=== PATIENT | female | born 1995 | race African-American/Black ===

== ENCOUNTER 2022-11-02 13:11 | Emergency (ER) | payer MEDICAID, OTHER ==
[~2022-11-02] VITALS: Ht 180.3 cm; Wt 146.0 kg
[2022-11-02 13:54] LABS: BASOPHILS % 0.5 % (0.0-2.0); EOSINOPHILS % 1.4 % (0.0-5.0); HEMATOCRIT. 32.6 % (36.0-48.0); HEMOGLOBIN. 10.9 g/dL (12.0-16.0); LYMPHOCYTES % 21.1 % (20.0-50.0); MEAN CORPUSCULAR HEMOGLOBIN 26.8 pg (28.0-32.0); MEAN CORPUSCULAR VOLUME 80.5 fL (81.0-99.0); MEAN PLATELET VOLUME 6.4 fl (7.4-10.4); MONOCYTES % 3.8 % (2.0-8.0); NEUTROPHILS % 73.2 % (40.0-76.0); PLATELET 347 x1000/uL (130-400); RED BLOOD CELL COUNT 4.05 mill/uL (4.2-5.4); RED CELL DISTRIBUTION WIDTH 14.2 % (11.6-14.6)
[2022-11-02 14:01] LABS: CHLORIDE 108 mEq/L (98-107)
[2022-11-02 14:35] LABS: B-HCG QUANTITATIVE 7468 mIU/mL (<3)
[2022-11-02] MEDS ORDERED: MORPHINE SULFATE 4 MG/ML CPJ (NOT FOR IM USE) IV ONE (16:30)
[2022-11-02 18:06] VITALS: BP 159/88
[2022-11-02] MEDS ORDERED: OXYTOCIN 30 UNITS/500ML NS PMX 500 ML IV ONE (18:15)
[2022-11-02] MEDS ORDERED: SODIUM CHLORIDE 0.9% IV ONE (18:30)
[2022-11-02] MEDS ORDERED: OXYTOCIN IV ONE (18:30)
== END 2022-11-03 00:34 | disposition home or self-care (01) ==
LOC: ER 13:11
DX: O26.891 Other specified pregnancy related conditions, first trimester (principal); R10.9 Unspecified abdominal pain; Z3A.01 Less than 8 weeks gestation of pregnancy
CPT/HCPCS: 36415; 76830; 76856; 80053; 84702; 85025; 86850; 86900; 86901; 88305; 88309; 96374; 99285; J2270; J7040; J2590

== ENCOUNTER 2023-07-24 23:26 | Emergency (ER) | payer MEDICAID ==
[~2023-07-24] VITALS: Ht 180.3 cm; Wt 195.0 kg
[2023-07-24 23:45] VITALS: BP 156/90; RESP 18; TEMP 98; O2SAT 100
[2023-07-24 23:54] VITALS: PULSE 111
[2023-07-25 00:59] LABS: BASOPHILS % 0.5 % (0.0-2.0); EOSINOPHILS % 2.1 % (0.0-5.0); HEMATOCRIT. 35.4 % (36.0-48.0); LYMPHOCYTES % 33.7 % (20.0-50.0); MEAN CORPUSCULAR HEMOGLOBIN 25.6 pg (28.0-32.0); MEAN CORPUSCULAR HGB CONC 31.1 g/dL (31.0-37.0); MEAN CORPUSCULAR VOLUME 82.4 fL (81.0-99.0); MEAN PLATELET VOLUME 6.3 fl (7.4-10.4); MONOCYTES % 4.2 % (2.0-8.0); NEUTROPHILS % 59.5 % (40.0-76.0); PLATELET 433 x1000/uL (130-400); RED CELL DISTRIBUTION WIDTH 16.1 % (11.6-14.6); WHITE BLOOD COUNT 15.3 x1000/uL (4.5-11.0)
[2023-07-25 01:16] LABS: ALANINE AMINOTRANSFERASE 8 IU/L (10-49); ASPARTATE AMINOTRANSFERASE 10 IU/L (<34); B-HCG QUANTITATIVE 5711 mIU/mL (<3); BILIRUBIN TOTAL 0.3 mg/dL (0.1-1.0); CARBON DIOXIDE 24 mEq/L (21-32); CHLORIDE 107 mEq/L (98-107); CREATININE 0.6 mg/dL (0.6-1.0); GLUCOSE 97 mg/dL (70-105); POTASSIUM 3.8 mEq/L (3.5-5.1); PROTEIN TOTAL 7.6 g/dL (6.0-8.3); SODIUM 139 mEq/L (136-145); UREA NITROGEN BLOOD 6 mg/dL (9-23)
[2023-07-25 02:56] LABS: CLARITY URINE TURBID (CLEAR); COLOR URINE YELLOW (YELLOW); GLUCOSE URINE NEGATIVE (NEGATIVE); KETONES URINE TRACE (NEGATIVE); LEUKOCYTE ESTERASE URINE 1+ (NEGATIVE); NITRITE URINE NEGATIVE (NEGATIVE); OCCULT BLOOD URINE 2+ (NEGATIVE); PH URINE 5.5 (4.5-8.0); PROTEIN URINE NEGATIVE (NEGATIVE)
[2023-07-25 03:27] LABS: AMORPHOUS SEDIMENT URINE 1+ /lpf; BACTERIA URINE 1+; RBC URINE 0-2 /hpf (0-2); SQUAMOUS EPITHELIAL CELL URINE 1+ /lpf (RARE/1+)
== END 2023-07-25 05:10 | disposition left against medical advice (07) ==
LOC: ER 23:26
DX: N93.9 Abnormal uterine and vaginal bleeding, unspecified (principal); Z53.21 Procedure and treatment not carried out due to patient leaving prior to being seen by health care provider
CPT/HCPCS: 36415; 76801; 80053; 81003; 84702; 85025; 86850; 86900; 99281

== ENCOUNTER 2023-09-21 09:09 | Emergency (ER) | payer BC, MEDICAID ==
[~2023-09-21] VITALS: Ht 180.3 cm; Wt 195.0 kg
[2023-09-21 09:10] VITALS: O2SAT 96
[2023-09-21 09:42] LABS: BASOPHILS % 0.4 % (0.0-2.0); EOSINOPHILS % 1.9 % (0.0-5.0); HEMATOCRIT. 33.9 % (36.0-48.0); MEAN CORPUSCULAR HEMOGLOBIN 26.1 pg (28.0-32.0); MEAN CORPUSCULAR HGB CONC 32.4 g/dL (31.0-37.0); MEAN CORPUSCULAR VOLUME 80.5 fL (81.0-99.0); MEAN PLATELET VOLUME 6.7 fl (7.4-10.4); MONOCYTES % 6.2 % (2.0-8.0); NEUTROPHILS % 64.5 % (40.0-76.0); PLATELET 352 x1000/uL (130-400); RED BLOOD CELL COUNT 4.21 mill/uL (4.2-5.4); RED CELL DISTRIBUTION WIDTH 14.8 % (11.6-14.6); WHITE BLOOD COUNT 13.6 x1000/uL (4.5-11.0)
[2023-09-21 10:48] LABS: CARBON DIOXIDE 23 mEq/L (21-32); CHLORIDE 107 mEq/L (98-107); GLUCOSE 111 mg/dL (70-105); POTASSIUM 3.8 mEq/L (3.5-5.1); SODIUM 137 mEq/L (136-145); UREA NITROGEN BLOOD < 5 mg/dL (9-23)
[2023-09-21 10:49] LABS: ALANINE AMINOTRANSFERASE 7 IU/L (10-49); ALBUMIN 4.2 g/dL (3.2-4.8); ASPARTATE AMINOTRANSFERASE < 8 IU/L (<34); B-HCG QUANTITATIVE 25244 mIU/mL (<3); BILIRUBIN TOTAL 0.3 mg/dL (0.1-1.0); CALCIUM 9.1 mg/dL (8.7-10.4); CREATININE 0.5 mg/dL (0.6-1.0); PROTEIN TOTAL 7.6 g/dL (6.0-8.3)
[2023-09-21 11:59] VITALS: BP 147/90; PULSE 105; RESP 15; TEMP 98.3
== END 2023-09-21 11:55 | disposition home or self-care (01) ==
LOC: ER 10:34
DX: O03.9 Complete or unspecified spontaneous abortion without complication (principal); Z98.890 Other specified postprocedural states
CPT/HCPCS: 36415; 76801; 80053; 84702; 85025; 86850; 86900; 99284

== ENCOUNTER 2023-09-24 15:33 | Emergency (ER) | payer MEDICAID ==
[~2023-09-24] VITALS: Ht 180.3 cm; Wt 195.0 kg
[2023-09-24 15:35] VITALS: RESP 20
[2023-09-24 15:36] VITALS: BP 158/89; PULSE 125; TEMP 98.9; O2SAT 99
[2023-09-24 16:07] LABS: BASOPHILS % 0.7 % (0.0-2.0); EOSINOPHILS % 1.8 % (0.0-5.0); HEMATOCRIT. 32.2 % (36.0-48.0); HEMOGLOBIN. 10.5 g/dL (12.0-16.0); LYMPHOCYTES % 22.1 % (20.0-50.0); MEAN CORPUSCULAR HGB CONC 32.6 g/dL (31.0-37.0); MEAN PLATELET VOLUME 6.6 fl (7.4-10.4); MONOCYTES % 6.2 % (2.0-8.0); NEUTROPHILS % 69.2 % (40.0-76.0); PLATELET 342 x1000/uL (130-400); RED BLOOD CELL COUNT 4.03 mill/uL (4.2-5.4)
[2023-09-24 16:22] LABS: ALANINE AMINOTRANSFERASE < 7 IU/L (10-49); ALBUMIN 4.2 g/dL (3.2-4.8); ASPARTATE AMINOTRANSFERASE 9 IU/L (<34); BILIRUBIN TOTAL 0.2 mg/dL (0.1-1.0); CALCIUM 8.9 mg/dL (8.7-10.4); CARBON DIOXIDE 22 mEq/L (21-32); CHLORIDE 105 mEq/L (98-107); CREATININE 0.5 mg/dL (0.6-1.0); GLUCOSE 103 mg/dL (70-105); HCG SCREEN POSITIVE; POTASSIUM 3.8 mEq/L (3.5-5.1); PROTEIN TOTAL 7.4 g/dL (6.0-8.3); SODIUM 137 mEq/L (136-145); UREA NITROGEN BLOOD 5 mg/dL (9-23)
== END 2023-09-25 04:42 | disposition left against medical advice (07) ==
LOC: ER 15:33
DX: N93.9 Abnormal uterine and vaginal bleeding, unspecified (principal); Z53.21 Procedure and treatment not carried out due to patient leaving prior to being seen by health care provider
CPT/HCPCS: 36415; 80053; 84703; 85025; 86850; 86900; 99283

== ENCOUNTER 2024-02-25 11:55 | Emergency (ER) | payer MEDICAID ==
[~2024-02-25] VITALS: Ht 177.8 cm; Wt 138.0 kg
[2024-02-25 11:57] VITALS: TEMP 98.7; O2SAT 100
[2024-02-25] MEDS: DIPHENHYDRAMINE 50MG/ML VIAL IM ONE (13:03)
[2024-02-25] MEDS: DEXAMETHASONE 10 MG/ML VIAL IM ONE (13:04)
[2024-02-25 13:45] VITALS: BP 135/73; PULSE 86; RESP 19
== END 2024-02-25 13:46 | disposition home or self-care (01) ==
LOC: ER 11:55
DX: T78.49XA Other allergy, initial encounter (principal); D64.9 Anemia, unspecified; Z98.890 Other specified postprocedural states; Z91.018 Allergy to other foods
CPT/HCPCS: 99284; 96372; J1100; J1200

== ENCOUNTER 2024-03-04 19:15 | Emergency (ER) | payer MEDICAID ==
[~2024-03-04] VITALS: Ht 180.3 cm; Wt 170.0 kg
[2024-03-04 19:34] VITALS: BP 130/89; PULSE 112; RESP 16; TEMP 98.1; O2SAT 98
== END 2024-03-04 22:54 | disposition left against medical advice (07) ==
LOC: ER 19:15
DX: M79.604 Pain in right leg (principal); Z53.21 Procedure and treatment not carried out due to patient leaving prior to being seen by health care provider

== ENCOUNTER 2024-03-15 19:52 | Emergency (ER) | payer MEDICAID ==
[~2024-03-15] VITALS: Ht 154.9 cm; Wt 193.0 kg
[2024-03-15 19:55] VITALS: BP 134/86; TEMP 98.7; O2SAT 99
[2024-03-15 19:57] VITALS: PULSE 108; RESP 16; O2SAT 100
[2024-03-15] MEDS: DEXAMETHASONE 10 MG/ML VIAL IM ONE (20:46)
[2024-03-15] MEDS: DIPHENHYDRAMINE 50MG/ML VIAL IM ONE (21:24)
[2024-03-15] MEDS: FAMOTIDINE 20MG TABLET PO ONE (21:30)
[2024-03-15] MEDS: DIPHENHYDRAMINE 25MG CAPSULE PO NR (21:31)
[2024-03-15] MEDS ORDERED: PRED10TA23 MT (22:02)
== END 2024-03-15 22:13 | disposition left against medical advice (07) ==
LOC: ER 19:52
DX: R51.9 Headache, unspecified (principal); R22.0 Localized swelling, mass and lump, head; D64.9 Anemia, unspecified; Z87.440 Personal history of urinary (tract) infections
CPT/HCPCS: 96372; 99283; Q0163; J1100; Z7610

== ENCOUNTER 2024-03-30 23:42 | Emergency (ER) | payer MEDICAID ==
[~2024-03-30] VITALS: Ht 180.3 cm; Wt 198.4 kg
[~2024-03-30 23:42] MED LIST: PRED10TA23 MT
[2024-03-30 23:46] VITALS: TEMP 98.3; O2SAT 99
[2024-03-30 23:47] VITALS: O2SAT 100
[2024-03-31] MEDS ORDERED: KETOROLAC 30MG/ML VIAL IM STA (00:20)
[2024-03-31 01:17] VITALS: BP 113/74; PULSE 124; RESP 18
[2024-03-31] MEDS: IBUPROFEN 800MG TABLET PO ONE (01:17)
== END 2024-03-31 04:05 | disposition left against medical advice (07) ==
LOC: ER 23:42
DX: R10.813 Right lower quadrant abdominal tenderness (principal); D64.9 Anemia, unspecified; Z98.890 Other specified postprocedural states; Z91.018 Allergy to other foods
CPT/HCPCS: 99282

== ENCOUNTER 2024-04-19 04:43 | Inpatient (IN) | payer MEDICAID ==
[~2024-04-19] VITALS: Ht 180.3 cm; Wt 192.8 kg
[2024-04-19 04:49] VITALS: O2SAT 97
[2024-04-19] MEDS ORDERED: DICYCLOMINE 10 MG/5 ML ORAL SYR PO STA (05:53)
[2024-04-19] MEDS ORDERED: ONDANSETRON 4MG ODT PO STA (05:53)
[2024-04-19] MEDS ORDERED: MAGNESIUM/ALUMINUM HYDROXIDE/SIMETHICONE 30ML UDC PO STA (05:53)
[2024-04-19 06:32] LABS: BASOPHILS % 0.2 % (0.0-2.0); DIFFERENTIAL COMMENT 0; EOSINOPHILS % 1.2 % (0.0-5.0); HEMATOCRIT. 35.2 % (36.0-48.0); HEMOGLOBIN. 11.2 g/dL (12.0-16.0); LYMPHOCYTES % 27.4 % (20.0-50.0); MEAN CORPUSCULAR HEMOGLOBIN 24.4 pg (28.0-32.0); MEAN CORPUSCULAR HGB CONC 31.9 g/dL (31.0-37.0); MEAN CORPUSCULAR VOLUME 76.6 fL (81.0-99.0); MEAN PLATELET VOLUME 6.5 fl (7.4-10.4); NEUTROPHILS % 67.2 % (40.0-76.0); PLATELET 479 x1000/uL (130-400); RED CELL DISTRIBUTION WIDTH 17.1 % (11.6-14.6); WHITE BLOOD COUNT 11.4 x1000/uL (4.5-11.0)
[2024-04-19 06:33] LABS: CHLORIDE 108 mEq/L (98-107); POTASSIUM 4.1 mEq/L (3.5-5.1); SODIUM 140 mEq/L (136-145)
[2024-04-19 06:34] LABS: CALCIUM 9.1 mg/dL (8.7-10.4); CARBON DIOXIDE 27 mEq/L (21-32)
[2024-04-19] MEDS: ONDANSETRON 4MG ODT PO NR (06:35)
[2024-04-19] MEDS: MAGNESIUM/ALUMINUM HYDROXIDE/SIMETHICONE 30ML UDC PO NR (06:35)
[2024-04-19] MEDS: DICYCLOMINE HCL 10MG CAPSULE PO NR (06:35)
[2024-04-19 06:37] LABS: CLARITY URINE TURBID (CLEAR); COLOR URINE YELLOW (YELLOW); GLUCOSE URINE NEGATIVE (NEGATIVE); KETONES URINE NEGATIVE (NEGATIVE); LEUKOCYTE ESTERASE URINE TRACE (NEGATIVE); NITRITE URINE NEGATIVE (NEGATIVE); OCCULT BLOOD URINE NEGATIVE (NEGATIVE); PROTEIN URINE NEGATIVE (NEGATIVE); SPECIFIC GRAVITY URINE 1.019 (1.005-1.030)
[2024-04-19 06:38] LABS: HCG SCREEN NEGATIVE; INR 0.9; PROTHROMBIN TIME 10.6 sec (9.6-11.0)
[2024-04-19 06:39] LABS: CREATININE 0.7 mg/dL (0.6-1.0); GLUCOSE 133 mg/dL (70-105); UREA NITROGEN BLOOD 7 mg/dL (9-23)
[2024-04-19 06:41] LABS: ALANINE AMINOTRANSFERASE 12 IU/L (10-49); ALBUMIN 4.2 g/dL (3.2-4.8); ASPARTATE AMINOTRANSFERASE 12 IU/L (<34); BILIRUBIN DIRECT 0.1 mg/dL (<=3.0); BILIRUBIN TOTAL 0.5 mg/dL (0.1-1.0); PROTEIN TOTAL 7.2 g/dL (6.0-8.3)
[2024-04-19 07:11] LABS: AMORPHOUS SEDIMENT URINE 2+ /lpf; BACTERIA URINE 1+; RBC URINE 0-2 /hpf (0-2); SQUAMOUS EPITHELIAL CELL URINE 1+ /lpf (RARE/1+); YEAST URINE NONE SEEN
[2024-04-19] MEDS: ACETAMINOPHEN 325MG TABLET PO ONE (08:30)
[2024-04-19] MEDS: IBUPROFEN 400MG TABLET PO ONE (08:30)
[2024-04-19] MEDS ORDERED: MORPHINE SULFATE 4 MG/ML INJ (FOR IV/IM USE) IV ONE (09:30)
[2024-04-19] MEDS: MORPHINE SULFATE 4 MG/ML INJ (FOR IV/IM USE) IV NR (09:48)
[2024-04-19 10:05] LABS: PHOSPHORUS 3.4 mg/dL (2.5-4.9)
[2024-04-19] MEDS ORDERED: DOCUSATE SODIUM 100MG CAPSULE PO PRN (10:15)
[2024-04-19] MEDS ORDERED: ACETAMINOPHEN 325MG TABLET PO PRN ×2 (10:15)
[2024-04-19] MEDS ORDERED: GUAIFENESIN 200MG/10ML SUGAR FREE UDC PO PRN (10:15)
[2024-04-19] MEDS ORDERED: ONDANSETRON HCL 4MG/2ML INJ IV PRN (10:15)
[2024-04-19] MEDS ORDERED: MAGNESIUM/ALUMINUM HYDROXIDE/SIMETHICONE 30ML UDC PO PRN (10:15)
[2024-04-19] MEDS ORDERED: CLONIDINE 0.1MG TABLET PO PRN (10:15)
[2024-04-19] MEDS ORDERED: IPRATROPIUM/ALBUTEROL 0.5-3(2.5)MG/3ML NEB HHN PRN (10:15)
[2024-04-19 10:41] LABS: IRON 29 ug/dL (50-170)
[2024-04-19 10:44] LABS: TOTAL IRON BINDING CAPACITY 476 ug/dl (250-425)
[2024-04-19 11:00] VITALS: BP 124/71; PULSE 72; RESP 20; TEMP 36.3068
[2024-04-19 12:34] LABS: VITAMIN B12 SERUM 413 pg/mL (211-911)
[2024-04-19 12:36] LABS: FERRITIN 35 ng/mL (10-291); FOLIC ACID (FOLATE) SERUM 9.52 ng/mL (>5.38)
[2024-04-19] MEDS: PANTOPRAZOLE SODIUM 40 MG/VIAL IV SCH (12:42)
[2024-04-19] MEDS: SUCRALFATE 1G TABLET PO SCH (13:46)
[2024-04-19 16:00] VITALS: BP 124/71; PULSE 72; RESP 20; TEMP 36.28068; O2SAT 97
[2024-04-19] MEDS ORDERED: SODIUM CHLORIDE 0.9% 500 ML IV ONE (17:45)
[2024-04-19] MEDS ORDERED: SODIUM CHLORIDE 0.9% 1,000 ML IV SCH (18:00)
[2024-04-19 20:00] VITALS: BP 127/77; PULSE 85; RESP 19; TEMP 36.114; O2SAT 98
[2024-04-19] MEDS: MORPHINE SULFATE 2 MG/ML INJ (NOT FOR IM USE) IV PRN (21:11)
[2024-04-20] VITALS: BP 115/46; PULSE 89; RESP 18; TEMP 36.3918; O2SAT 98
[2024-04-20 02:51] LABS: CREATINE KINASE 87 IU/L (34-145)
[2024-04-20 03:13] LABS: TROPONIN I HIGH SENSITIVITY < 4 ng/L (3.0-34)
[2024-04-20 04:00] VITALS: BP 113/48; PULSE 88; RESP 19; TEMP 36.16956; O2SAT 98
[2024-04-20 08:00] VITALS: BP 137/71; PULSE 94; RESP 18; TEMP 36.44736
[2024-04-20 08:00] LABS: ALANINE AMINOTRANSFERASE 10 IU/L (10-49); ALBUMIN 3.8 g/dL (3.2-4.8); ASPARTATE AMINOTRANSFERASE 11 IU/L (<34); BILIRUBIN DIRECT 0.2 mg/dL (<=3.0); BILIRUBIN TOTAL 0.6 mg/dL (0.1-1.0); PROTEIN TOTAL 6.6 g/dL (6.0-8.3)
[2024-04-20 08:02] LABS: CALCIUM 8.6 mg/dL (8.7-10.4); CARBON DIOXIDE 26 mEq/L (21-32); CHLORIDE 107 mEq/L (98-107); POTASSIUM 3.9 mEq/L (3.5-5.1); SODIUM 139 mEq/L (136-145)
[2024-04-20 08:08] LABS: CREATININE 0.7 mg/dL (0.6-1.0); GLUCOSE 103 mg/dL (70-105); TRIGLYCERIDE 88 mg/dL (0-150); UREA NITROGEN BLOOD 7 mg/dL (9-23)
[2024-04-20 08:09] LABS: LDL CHOLESTEROL 181 mg/dL (5-100)
[2024-04-20 08:10] LABS: CHOLESTEROL 201 mg/dL (<200); HDL CHOLESTEROL 28 mg/dL (>65); T4 FREE 1.25 ng/dL (0.89-1.76); THYROID STIMULATING HORMONE 1.79 uIU/mL (0.55-4.78)
[2024-04-20 08:35] LABS: BASOPHILS % 0.2 % (0.0-2.0); DIFFERENTIAL COMMENT 0; EOSINOPHILS % 2.6 % (0.0-5.0); HEMATOCRIT. 33.7 % (36.0-48.0); HEMOGLOBIN. 10.7 g/dL (12.0-16.0); LYMPHOCYTES % 40.4 % (20.0-50.0); MEAN CORPUSCULAR HEMOGLOBIN 24.7 pg (28.0-32.0); MEAN CORPUSCULAR HGB CONC 31.8 g/dL (31.0-37.0); MEAN CORPUSCULAR VOLUME 77.5 fL (81.0-99.0); MEAN PLATELET VOLUME 6.8 fl (7.4-10.4); MONOCYTES % 4.5 % (2.0-8.0); NEUTROPHILS % 52.3 % (40.0-76.0); PLATELET 438 x1000/uL (130-400); RED BLOOD CELL COUNT 4.35 mill/uL (4.2-5.4); RED CELL DISTRIBUTION WIDTH 16.9 % (11.6-14.6); WHITE BLOOD COUNT 9.1 x1000/uL (4.5-11.0)
[2024-04-20] MEDS: MULTIVITAMINS,THER W-MINERALS TABLET PO SCH (09:20)
[2024-04-20] MEDS: TAMSULOSIN HCL 0.4MG SR CAPSULE PO SCH (09:20)
[2024-04-20 12:00] VITALS: BP 126/71; PULSE 87; RESP 18; TEMP 36.83628; O2SAT 98
[2024-04-20] MEDS ORDERED: ATORVASTATIN CALCIUM 40MG TABLET PO SCH (21:00)
== END 2024-04-20 15:30 | disposition left against medical advice (07) | DRG 241 ==
LOC: ER 04:43 → 6WST 09:57
PROVIDERS: ADMIT Preventive Medicine Clinical Informatics; ATTEND Preventive Medicine Clinical Informatics
DX: K29.70 Gastritis, unspecified, without bleeding (principal); K76.0 Fatty (change of) liver, not elsewhere classified; R16.2 Hepatomegaly with splenomegaly, not elsewhere classified; K22.4 Dyskinesia of esophagus; K21.9 Gastro-esophageal reflux disease without esophagitis; D50.9 Iron deficiency anemia, unspecified; D72.829 Elevated white blood cell count, unspecified; N20.0 Calculus of kidney; E66.01 Morbid (severe) obesity due to excess calories; E78.5 Hyperlipidemia, unspecified; Z53.29 Procedure and treatment not carried out because of patient's decision for other reasons; M13.88 Other specified arthritis, other site; R73.9 Hyperglycemia, unspecified; Z79.899 Other long term (current) drug therapy; Z91.018 Allergy to other foods; Z68.43 Body mass index [BMI] 50.0-59.9, adult
CPT/HCPCS: 36415; 74176; 76705; 80048; 80061; 80076; 81003; 82550; 82607; 82728; 82746; 82962; 83036; 83540; 83550; 83735; 84100; 84145; 84439; 84443; 84484; 84703; 85025; 99285; J2270; J2470; J7030; Q0162

== ENCOUNTER 2024-10-02 08:31 | Emergency (ER) | payer MEDICAID ==
[~2024-10-02] VITALS: Ht 180.3 cm; Wt 162.0 kg
[2024-10-02 08:36] VITALS: O2SAT 100
[2024-10-02] MEDS: EPINEPHRINE 1:1000 1 MG/ML AMP IM ONE (09:21)
[2024-10-02] MEDS: METHYLPREDNISOLONE SOD SUCC 125MG/2ML (ACT-O-VIAL) IV ONE (09:23)
[2024-10-02] MEDS: DIPHENHYDRAMINE 50MG/ML VIAL IV ONE (09:24)
[2024-10-02] MEDS: FAMOTIDINE 20MG/2ML VIAL IV ONE (09:26)
[2024-10-02 09:43] LABS: HEMATOCRIT 34.8 % (36.0-48.0); HEMOGLOBIN 11.2 g/dL (12.0-16.0); MEAN CORPUSCULAR HEMOGLOBIN 26.9 pg (28.0-32.0); MEAN CORPUSCULAR HGB CONC 32.3 g/dL (31.0-37.0); MEAN CORPUSCULAR VOLUME 83.4 fL (81.0-99.0); PLATELET 367 x1000/uL (130-400); RED BLOOD CELL COUNT 4.17 mill/uL (4.2-5.4); RED CELL DISTRIBUTION WIDTH 14.9 % (11.6-14.6); WHITE BLOOD COUNT 9.6 x1000/uL (4.5-11.0)
[2024-10-02 09:56] LABS: CHLORIDE 106 mEq/L (98-107); POTASSIUM 4.2 mEq/L (3.5-5.1); SODIUM 141 mEq/L (136-145)
[2024-10-02 09:57] LABS: CARBON DIOXIDE 25 mEq/L (21-32)
[2024-10-02 10:02] LABS: CREATININE 0.7 mg/dL (0.6-1.0); GLUCOSE 94 mg/dL (70-105); UREA NITROGEN BLOOD 5 mg/dL (9-23)
[2024-10-02] MEDS ORDERED: AMOX-494 MT (14:13)
[2024-10-02] MEDS ORDERED: DIPH-1207 MT (14:13)
[2024-10-02 14:27] VITALS: BP 112/73; PULSE 94; RESP 18; TEMP 36.2; O2SAT 100
[2024-10-02] MEDS ORDERED: CEFTRIAXONE 2GM/50ML 50 ML IV NR (15:00)
[2024-10-02] MEDS ORDERED: IOHEXOL-350 100 ML BOTTLE ONE (16:21)
== END 2024-10-02 14:29 | disposition home or self-care (01) ==
LOC: ER 08:31
DX: T78.2XXA Anaphylactic shock, unspecified, initial encounter (principal); J03.90 Acute tonsillitis, unspecified; I10 Essential (primary) hypertension; M19.90 Unspecified osteoarthritis, unspecified site; R59.0 Localized enlarged lymph nodes; Z79.899 Other long term (current) drug therapy; Z87.440 Personal history of urinary (tract) infections; Z91.018 Allergy to other foods; Y92.89 Other specified places as the place of occurrence of the external cause
CPT/HCPCS: 80048; 81025; 85027; 36415; 70487; 70491; 96372; 96374; 96375; 99291; Q9967; J1200; J3490 ×2; J2919; Z7610 ×3